=== PATIENT | male | born 1990 | race African-American/Black ===

== ENCOUNTER 2017-09-05 11:23 | Emergency (ER) | payer MEDICAID ==
[~2017-09-05] VITALS: Ht 175.3 cm; Wt 79.0 kg
[2017-09-05] MEDS ORDERED: IBUPROFEN 600MG TABLET PO ONE (12:00)
[2017-09-05 12:35] VITALS: BP 135/74
== END 2017-09-05 14:04 | disposition home or self-care (01) ==
LOC: ER 13:07
DX: S60.031A Contusion of right middle finger without damage to nail, initial encounter (principal); W23.0XXA Caught, crushed, jammed, or pinched between moving objects, initial encounter; Y93.89 Activity, other specified; Y92.488 Other paved roadways as the place of occurrence of the external cause; F17.210 Nicotine dependence, cigarettes, uncomplicated
CPT/HCPCS: 73130; 99284

== ENCOUNTER 2018-02-14 17:42 | Emergency (ER) | payer MEDICAID ==
[~2018-02-14] VITALS: Ht 175.3 cm; Wt 87.0 kg
[2018-02-14 23:30] VITALS: BP 119/80
== END 2018-02-14 23:40 | disposition home or self-care (01) ==
LOC: ER 20:03
DX: F41.9 Anxiety disorder, unspecified (principal); F17.200 Nicotine dependence, unspecified, uncomplicated; G43.909 Migraine, unspecified, not intractable, without status migrainosus
CPT/HCPCS: 71045; 93005; 99284; Z7610

== ENCOUNTER 2018-03-02 12:49 | Emergency (ER) | payer MEDICAID ==
[~2018-03-02] VITALS: Ht 175.3 cm; Wt 81.0 kg
[2018-03-02] MEDS ORDERED: IBUPROFEN 600MG TABLET PO STA (14:59)
[2018-03-02] MEDS ORDERED: ONDANSETRON 4MG ODT PO STA (14:59)
[2018-03-02 15:13] LABS: BASOPHILS % 0.3 % (0.0-2.0); EOSINOPHILS % 1.2 % (0.0-5.0); HEMATOCRIT. 44.2 % (42.0-52.0); HEMOGLOBIN. 15.4 g/dL (14.0-18.0); LYMPHOCYTES % 21.2 % (20.0-50.0); MEAN CORPUSCULAR HEMOGLOBIN 33.2 pg (28.0-32.0); MEAN CORPUSCULAR VOLUME 95.5 fL (80.0-94.0); MEAN PLATELET VOLUME 9.3 fl (7.4-10.4); NEUTROPHILS % 70.3 % (40.0-76.0); PLATELET 139 x1000/uL (130-400); RED BLOOD CELL COUNT 4.63 mill/uL (4.7-6.1); RED CELL DISTRIBUTION WIDTH 12.4 % (11.6-14.6)
[2018-03-02 15:15] LABS: KETONES URINE NEGATIVE (NEGATIVE); LEUKOCYTE ESTERASE URINE TRACE (NEGATIVE); NITRITE URINE NEGATIVE (NEGATIVE); OCCULT BLOOD URINE NEGATIVE (NEGATIVE); PROTEIN URINE NEGATIVE (NEGATIVE); SPECIFIC GRAVITY URINE 1.029 (1.005-1.030)
[2018-03-02 15:16] LABS: CLARITY URINE CLEAR (CLEAR); COLOR URINE YELLOW (YELLOW)
[2018-03-02 15:19] LABS: CHLORIDE 109 mEq/L (98-107)
[2018-03-02 17:53] VITALS: BP 119/62
== END 2018-03-02 17:56 | disposition home or self-care (01) ==
LOC: ER 13:29
DX: N39.0 Urinary tract infection, site not specified (principal); R59.0 Localized enlarged lymph nodes; G43.909 Migraine, unspecified, not intractable, without status migrainosus; F17.200 Nicotine dependence, unspecified, uncomplicated
CPT/HCPCS: 36415; 76857; 80053; 81003; 83690; 85025; 99285; Q0162

== ENCOUNTER 2018-06-19 17:09 | Emergency (ER) | payer MEDICAID ==
[~2018-06-19] VITALS: Ht 175.3 cm; Wt 80.0 kg
[2018-06-19] MEDS ORDERED: KETOROLAC 60MG/2ML VIAL IM ONE (18:45)
[2018-06-19 20:05] VITALS: BP 120/73
== END 2018-06-19 21:05 | disposition home or self-care (01) ==
LOC: ER 17:09
DX: M25.562 Pain in left knee (principal); G43.909 Migraine, unspecified, not intractable, without status migrainosus
CPT/HCPCS: 73562; 96372; 99284; J1885; L1830

== ENCOUNTER 2019-01-09 13:43 | Emergency (ER) | payer MEDICAID ==
[~2019-01-09] VITALS: Ht 175.3 cm; Wt 82.0 kg
[2019-01-09 13:59] VITALS: BP 115/61
== END 2019-01-09 15:43 | disposition home or self-care (01) ==
LOC: ER 13:43
DX: B34.9 Viral infection, unspecified (principal); J06.9 Acute upper respiratory infection, unspecified; G43.909 Migraine, unspecified, not intractable, without status migrainosus; F17.200 Nicotine dependence, unspecified, uncomplicated
CPT/HCPCS: 87804; 99283

== ENCOUNTER 2019-01-24 13:50 | Emergency (ER) | payer MEDICAID ==
[~2019-01-24] VITALS: Ht 175.3 cm; Wt 82.0 kg
[2019-01-24] MEDS ORDERED: KETOROLAC 15MG/ML VIAL IM ONE (16:15)
[2019-01-24 16:30] VITALS: BP 132/87
== END 2019-01-24 17:05 | disposition home or self-care (01) ==
LOC: ER 13:50
DX: M54.5 Low back pain (principal)
CPT/HCPCS: 96372; 99283; J1885

== ENCOUNTER 2019-02-13 13:59 | Emergency (ER) | payer MEDICAID ==
[~2019-02-13] VITALS: Ht 175.3 cm; Wt 70.0 kg
[2019-02-13] MEDS ORDERED: SODIUM CHLORIDE 0.9% 1,000 ML IV ONE (14:21)
[2019-02-13] MEDS ORDERED: SUMATRIPTAN SUCCINATE 6MG/0.5ML VIAL SUBCUT ONE (14:30)
[2019-02-13] MEDS ORDERED: PROCHLORPERAZINE 10MG/2ML VIAL IV ONE (14:30)
[2019-02-13 16:25] VITALS: BP 126/79
== END 2019-02-13 16:30 | disposition home or self-care (01) ==
LOC: ER 14:32
DX: G43.909 Migraine, unspecified, not intractable, without status migrainosus (principal); H53.149 Visual discomfort, unspecified; F17.200 Nicotine dependence, unspecified, uncomplicated; Z87.442 Personal history of urinary calculi; Z98.890 Other specified postprocedural states
CPT/HCPCS: 96361; 96372; 96374; 99283; J0780; J3030; J7030

== ENCOUNTER 2019-03-20 16:45 | Emergency (ER) | payer MEDICAID ==
[~2019-03-20] VITALS: Ht 177.8 cm; Wt 68.0 kg
[2019-03-20 17:16] VITALS: BP 120/52
== END 2019-03-20 18:01 | disposition home or self-care (01) ==
LOC: ER 16:45
DX: S16.1XXA Strain of muscle, fascia and tendon at neck level, initial encounter (principal); X58.XXXA Exposure to other specified factors, initial encounter; M25.512 Pain in left shoulder; Y93.89 Activity, other specified; Y92.89 Other specified places as the place of occurrence of the external cause; F17.210 Nicotine dependence, cigarettes, uncomplicated
CPT/HCPCS: 99282

== ENCOUNTER 2019-04-17 16:18 | Emergency (ER) | payer MEDICAID ==
[~2019-04-17] VITALS: Ht 175.3 cm; Wt 84.0 kg
[2019-04-17] MEDS ORDERED: IBUPROFEN 600MG TABLET PO ONE (18:45)
[2019-04-17 20:10] VITALS: BP 113/79
== END 2019-04-17 20:14 | disposition home or self-care (01) ==
LOC: ER 16:18
DX: M79.652 Pain in left thigh (principal); M79.662 Pain in left lower leg; R51 Headache
CPT/HCPCS: 93971; 99284

== ENCOUNTER 2019-04-25 15:19 | Emergency (ER) | payer MEDICAID ==
[~2019-04-25] VITALS: Ht 175.3 cm; Wt 90.0 kg
[2019-04-25] MEDS ORDERED: IBUPROFEN 600MG TABLET PO ONE (16:30)
[2019-04-25 16:32] VITALS: BP 138/76
== END 2019-04-25 17:48 | disposition home or self-care (01) ==
LOC: ER 15:19
DX: S60.222A Contusion of left hand, initial encounter (principal); X50.0XXA Overexertion from strenuous movement or load, initial encounter; Y93.89 Activity, other specified; Y92.89 Other specified places as the place of occurrence of the external cause; Y99.8 Other external cause status; F17.200 Nicotine dependence, unspecified, uncomplicated; I10 Essential (primary) hypertension; Z98.890 Other specified postprocedural states
CPT/HCPCS: 29125; 73130; 99283

== ENCOUNTER 2023-01-10 01:27 | Emergency (ER) | payer MEDICAID ==
[~2023-01-10] VITALS: Ht 175.3 cm; Wt 84.0 kg
[2023-01-10] MEDS ORDERED: KETOROLAC 60MG/2ML VIAL IM ONE (03:15)
[2023-01-10 03:49] VITALS: BP 120/67
[2023-01-10] MEDS ORDERED: PREDNISONE 20MG TABLET PO STA (05:42)
[2023-01-10] MEDS ORDERED: ALBUTEROL (0.083%) 2.5MG/3ML NEB HHN STA (05:42)
[2023-01-10] MEDS ORDERED: IPRATROPIUM BROMIDE (0.02%) 0.5MG/2.5ML NEB HHN STA (05:42)
[2023-01-10 05:52] LABS: CLARITY URINE CLEAR (CLEAR); COLOR URINE DARK YELLOW (YELLOW); KETONES URINE TRACE (NEGATIVE); LEUKOCYTE ESTERASE URINE NEGATIVE (NEGATIVE); NITRITE URINE NEGATIVE (NEGATIVE); OCCULT BLOOD URINE NEGATIVE (NEGATIVE); PH URINE 6.5 (4.5-8.0); PROTEIN URINE TRACE (NEGATIVE); SPECIFIC GRAVITY URINE 1.035 (1.005-1.030)
[2023-01-10] MEDS ORDERED: IBUP-2029 MT (05:55)
[2023-01-10] MEDS ORDERED: LIDO1ADH62 TP (06:01)
== END 2023-01-10 06:37 | disposition home or self-care (01) ==
LOC: ER 01:27
DX: G89.29 Other chronic pain (principal); M54.9 Dorsalgia, unspecified; R06.02 Shortness of breath; Z86.59 Personal history of other mental and behavioral disorders; Z98.890 Other specified postprocedural states
CPT/HCPCS: 81003; 94640; 99283; J1885; J7512; Z7610